=== PATIENT | female | born 1950 | race Caucasian/White ===

== ENCOUNTER 2018-07-23 16:40 | Emergency (ER) | payer MEDICARE ==
[2018-07-23 16:54] VITALS: Ht 157.5 cm
[2018-07-23 18:10] VITALS: BP 148/72
== END 2018-07-23 18:10 | disposition home or self-care (01) ==
LOC: ED 16:40
DX: S42.201A Unspecified fracture of upper end of right humerus, initial encounter for closed fracture (principal); I10 Essential (primary) hypertension; E11.9 Type 2 diabetes mellitus without complications; E78.00 Pure hypercholesterolemia, unspecified; Z88.0 Allergy status to penicillin; W19.XXXA Unspecified fall, initial encounter; Y93.89 Activity, other specified; Y92.89 Other specified places as the place of occurrence of the external cause; Y99.8 Other external cause status
CPT/HCPCS: Q0092